=== PATIENT | male | born 1935 | race Asian ===

== ENCOUNTER → 2016-10-25 | Outpatient (CLI) | payer MEDICARE, OTHER ==
[~2016-10-25] MED LIST: ASPI-621 PO; EVOL140P SC; ISOS30TA8 PO; METO25TA35 PO; NITR0.4T SL; NITR0.4T28 SL; PRAS10TA4 PO; ROSU5TAB PO; TICA90TA PO; [UNRECOGNIZED DRUG - CODE] RIGHTEYE; [UNRECOGNIZED DRUG - REMARK] RIGHTEYE
== END | disposition home or self-care (01) ==
LOC: CFH 08:43
PROVIDERS: ATTEND Internal Medicine Cardiovascular Disease
DX: I25.10 Atherosclerotic heart disease of native coronary artery without angina pectoris (principal); Z95.5 Presence of coronary angioplasty implant and graft
CPT/HCPCS: 78452; 93017; A9502